=== PATIENT | male | born 1980 | race Caucasian/White ===

== ENCOUNTER 2019-12-28 06:01 | Day surgery (SDC) | payer MEDICAID, OTHER ==
[~2019-12-28 06:01] MED LIST: Dextrose 5%-0.45% NaCl 1,000 ML IV SCH; Sodium Chloride 0.9% 10 ML Syringe FLUSH PRN
[2019-12-28] MEDS ORDERED: Midazolam 1 MG/ML 2 ML SDV IV ONE ×3 (06:02→06:58)
[2019-12-28] MEDS ORDERED: fentaNYL 100 MCG/2 ML SDV IV ONE ×3 (06:02→06:57)
[2019-12-28] MEDS ORDERED: Midazolam 1 MG/ML 2 ML SDV ONE (06:15)
[2019-12-28] MEDS ORDERED: fentaNYL 100 MCG/2 ML SDV ONE (06:15)
--- NOTE | 2019-12-28 13:29 | OR ---
DATE: 12/28/2019 PROCEDURE PERFORMED: Esophagogastroduodenoscopy and multiple pinch biopsies. INSTRUMENT USED: [id number] Olympus video panendoscope. PREMEDICATIONS: No oral or topical anesthesia used. Fentanyl 100 mcg intravenous, Versed 2 mg intravenous. The procedure was done under pulse oximetry, BP recording, and electronic device monitor. INDICATION: The patient with persistent longstanding heartburn and dyspepsia, unexplained and not responsive to medical measures, on PPI. Esophagogastroduodenoscopy is performed for detection of any active erosive lesions, Snyder esophagus and/or malignancy also under consideration, H. pylori status to be determined, endoscopic hemostasis therapy if needed. The scope was passed with ease. Adequate visualization of the esophagus was made from proximal to distal areas. No upper esophageal lesions identified. No distal esophageal stricture. No uphill or downhill esophageal varices. No Corina- Martinez tear. No evidence of erosive esophagitis by [place] criteria. No esophageal polyp or tumor mass identified. Z-line was seen at around 40 cm distal to the oral verge, configuration consistent with grade 1 by ZAP classification. No proximal gastric varices noted. Gastric fundus examination by retroflexion showed no polypoid lesions. No gastric ulcer, malignant mass, or vascular ectasia identified. Duodenal bulb showed no ulcer. Visualized second part of the duodenum was remarkable. Multiple pinch biopsies were taken from the gastric antrum and proximal body and sent for PyloriTek test for H. pylori, and if negative in an hour, the tissue will be sent for histopathology. No bleeding was noted from any of the visualized areas at the completion of examination. Photographs were taken of the duodenal bulb, gastric antrum, fundus, and distal esophagus. IMPRESSION: Normal study. The patient tolerated the procedure well. [facility] /[id number]
== END 2019-12-28 09:15 | disposition home or self-care (01) ==
LOC: DL.ENDO 06:01
PROVIDERS: ATTEND Internal Medicine Gastroenterology
DX: R10.13 Epigastric pain (principal); K31.89 Other diseases of stomach and duodenum; K21.9 Gastro-esophageal reflux disease without esophagitis; Z88.1 Allergy status to other antibiotic agents; Z79.899 Other long term (current) drug therapy
CPT/HCPCS: 43239; 87077; J2250; J3010; J7042

== ENCOUNTER 2020-05-04 01:48 | Emergency (ER) | payer MEDICAID ==
[2020-05-04] MEDS ORDERED: Sodium Chloride 0.9% 1,000 ML IV ONE (03:04)
[2020-05-04 03:05] LABS: ANION GAP 10.7 mEq/L (7-13); CHLORIDE,CL 104 mmol/L (98-107); SODIUM,NA 143 mmol/L (136-145)
--- NOTE | 2020-05-04 03:47 | CT ---
PROCEDURE INFORMATION: Exam: CT Abdomen And Pelvis Without Contrast Exam date and time: 05/04/2020 3:28 AM Age: 39 years old Clinical indication: Other: Right flank lower abdominal pain, HX renal stones TECHNIQUE: Imaging protocol: Computed tomography of the abdomen and pelvis without contrast. Radiation optimization: All CT scans at this facility use at least one of these dose optimization techniques: automated exposure control; mA and/or kV adjustment per patient size (includes targeted exams where dose is matched to clinical indication); or iterative reconstruction. COMPARISON: No relevant prior studies available. FINDINGS: Liver: Normal. No mass. Gallbladder and bile ducts: Normal. No calcified stones. No ductal dilation. Pancreas: Normal. No ductal dilation. Spleen: Normal. No splenomegaly. Adrenals: Normal. No mass. Kidneys and ureters: Non-obstructing 2-3 mm nephrolithiasis bilaterally. Mild distention of the right ureter without obstructing ureteral calculus. Stomach and bowel: There appears to be circumferential wall thickening and mucosal curvilinear lucency involving the splenic flexure and proximal descending colon. This may be related to incomplete luminal distention versus colitis, more likely chronic. Appendix: No evidence of appendicitis. Intraperitoneal space: Unremarkable. No free air. No significant fluid collection. Vasculature: Unremarkable. No abdominal aortic aneurysm. Lymph nodes: Unremarkable. No enlarged lymph nodes. Bladder: Bladder is partially distended without calculus. Reproductive: Prostatic calcifications. Surgical sutures in the right scrotal sac, partially included on the study. Asymmetry of the seminal vesicles right greater than left. Bones/joints: Vacuum disc at the lumbosacral junction. No compression deformity. Soft tissues: Abdominal wall soft tissues are unremarkable. IMPRESSION: 1. Bilateral 2-3 mm nonobstructing nephrolithiasis. 2. Mild prominence of the right ureter possibly due to transiently obstructing calculus or recently passed calculus. No bladder calculus identified.
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
== END 2020-05-04 04:05 | disposition home or self-care (01) ==
LOC: DL.ED 01:48
DX: N20.0 Calculus of kidney (principal); K21.9 Gastro-esophageal reflux disease without esophagitis; Z88.1 Allergy status to other antibiotic agents; Z79.899 Other long term (current) drug therapy
CPT/HCPCS: 36415; 74176; 80053; 81001; 85025; 99284; J7030

== ENCOUNTER 2020-07-21 21:06 | Emergency (ER) | payer MEDICAID ==
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
== END 2020-07-21 23:22 ==
LOC: DL.ED 21:06
DX: S82.832A Other fracture of upper and lower end of left fibula, initial encounter for closed fracture (principal); S82.302A Unspecified fracture of lower end of left tibia, initial encounter for closed fracture; K21.9 Gastro-esophageal reflux disease without esophagitis; Z88.1 Allergy status to other antibiotic agents; Z79.899 Other long term (current) drug therapy; W23.0XXA Caught, crushed, jammed, or pinched between moving objects, initial encounter
CPT/HCPCS: 29505; 29515; 73590-LT; 99283; 99285-25

== ENCOUNTER 2022-08-02 09:19 | Emergency (ER) | payer MEDICAID ==
[2022-08-02] MEDS ORDERED: Sodium Chloride 0.9% 1,000 ML IV ONE (09:39)
[2022-08-02] MEDS ORDERED: Sodium Chloride 0.9% 10 ML Syringe FLUSH PRN (09:39)
[2022-08-02] MEDS ORDERED: Ketorolac 30 MG/ML SDV IVPUSH ONE (09:39)
[2022-08-02 10:26] LABS: ANION GAP 14.9 mEq/L (7-13); CHLORIDE,CL 101 mmol/L (98-107); ESTIMATED GFR 70 mL/min (>=60); SODIUM,NA 138 mmol/L (136-145)
== END 2022-08-02 10:53 | disposition home or self-care (01) ==
LOC: DL.ED 09:19
DX: N23 Unspecified renal colic (principal); K21.9 Gastro-esophageal reflux disease without esophagitis; Z88.1 Allergy status to other antibiotic agents; Z79.899 Other long term (current) drug therapy
CPT/HCPCS: 36415; 80053; 81001; 83605; 84145; 85025; 87040; 96374; 99284-25; J1885; J3490; J7030

== ENCOUNTER 2023-02-15 18:26 | Emergency (ER) | payer OTHER, MEDICAID ==
[2023-02-15] MEDS ORDERED: HYDROmorphone 1 MG/ML Syringe IVPUSH ONE ×2 (19:32→22:18)
[2023-02-15] MEDS ORDERED: Iopamidol 612 MG/ML 100 ML Bottle IVPUSH ONE (19:32)
[2023-02-15] MEDS ORDERED: Sodium Chloride 0.9% 1,000 ML IV SCH (19:45)
[2023-02-15] MEDS ORDERED: Ondansetron 4 MG/2 ML SDV IVPUSH ONE (19:56)
[2023-02-15 22:10] LABS: CHLORIDE,CL 102 mmol/L (98-107); SODIUM,NA 139 mmol/L (136-145)
[2023-02-15 22:37] LABS: ESTIMATED GFR 63 mL/min (>=60)
== END 2023-02-15 22:38 ==
LOC: DL.ED 18:26
DX: S22.42XA Multiple fractures of ribs, left side, initial encounter for closed fracture (principal); S42.022A Displaced fracture of shaft of left clavicle, initial encounter for closed fracture; S27.1XXA Traumatic hemothorax, initial encounter; I31.39 Other pericardial effusion (noninflammatory); Z88.1 Allergy status to other antibiotic agents; V89.2XXA Person injured in unspecified motor-vehicle accident, traffic, initial encounter
CPT/HCPCS: 36415; 71045; 71100; 71270; 73000; 74178; 80053; 80307; 84484; 85025; 96361; 96374; 96375; 96376; 99284; 99285; J1170; J2405; J3360; J7030; Q9967

== ENCOUNTER 2023-04-07 21:32 | Emergency (ER) | payer MEDICAID ==
[2023-04-07] MEDS ORDERED: Iopamidol 612 MG/ML 100 ML Bottle IVPUSH ONE (23:39)
[2023-04-07 23:53] LABS: BASOPHILS PERCENT AUTO 0.3 % (0.0-1.0); EOSINOPHILS PERCENT AUTO 0.7 % (1.0-3.0); HEMATOCRIT 44.7 % (40.0-54.0); HEMOGLOBIN 15.4 g/dL (14.0-18.0); LYMPHOCYTES PERCENT AUTO 19.4 % (20.5-50.1); MEAN CORPUSCULAR HEMOGLOBIN 29.7 pg (27.0-34.0); MEAN CORPUSCULAR HGB CONC 34.5 g/dL (33.0-35.0); MEAN CORPUSCULAR VOLUME 86.3 fL (80-100); MONOCYTES PERCENT AUTO 9.7 % (2-8); NEUTROPHILS PERCENT AUTO 69.9 % (42.2-75.2); PLATELET COUNT,PLT 249 10^3/uL (150-450); RED BLOOD CELL COUNT 5.18 10^6/uL (4.6-6.2); WHITE BLOOD CELL COUNT,WBC 10.7 10^3/uL (5.0-10.0)
[2023-04-08 00:12] LABS: A/G RATIO 1.4; ALANINE AMINOTRANSFERASE,ALT 33 U/L (16-63); ALBUMIN 4.1 g/dL (3.4-5.0); ALKALINE PHOSPHATASE 122 U/L (46-116); ANION GAP 10.9 mEq/L (7-13); ASPARTATE AMNIOTRANSFERASE,AST 21 U/L (15-37); BILIRUBIN TOTAL 0.5 mg/dL (0.2-1.0); BLOOD UREA NITROGEN,BUN 16 mg/dL (7-18); BUN/CREATININE RATIO 14.4 (No establ ref range); CALCIUM 9.1 mg/dL (8.5-10.1); CARBON DIOXIDE,CO2 31 mmol/L (21-32); CHLORIDE,CL 106 mmol/L (98-107); CREATININE 1.11 mg/dL (0.70-1.30); EST CRCL DRUG DOSING (CG) 87.58 mL/min; GLUCOSE RANDOM 113 mg/dL (70-99); POTASSIUM,K 3.9 mmol/L (3.5-5.1); PROTEIN TOTAL,TP 7.1 g/dL (6.4-8.2); SODIUM,NA 144 mmol/L (136-145)
[2023-04-08 00:16] LABS: LACTIC ACID 0.6 mmol/L (0.4-2.0)
[2023-04-08 00:20] LABS: ESTIMATED GFR 86 mL/min (>=60)
[2023-04-08 00:21] LABS: C-REACTIVE PROTEIN < 0.2 mg/dL (0.0-0.9)
[2023-04-08] MEDS ORDERED: fentaNYL 100 MCG/2 ML SDV IVPUSH ONE (01:48)
[2023-04-08] MEDS ORDERED: Take Home: Amoxicillin/Clavulanate K 875-125 MG Tab, 6 Tab Pack PO ONE (02:55)
== END 2023-04-08 03:13 | disposition home or self-care (01) ==
LOC: DL.ED 21:32
DX: K61.0 Anal abscess (principal); K21.9 Gastro-esophageal reflux disease without esophagitis; Z88.1 Allergy status to other antibiotic agents; Z79.899 Other long term (current) drug therapy
CPT/HCPCS: 36415; 72193; 80053; 83605; 85025; 86140; 87070; 87077; 87186; 96374; 99283; 99284; A9270; J3010

== ENCOUNTER 2023-05-26 22:50 | Emergency (ER) | payer MEDICAID ==
[2023-05-26] MEDS ORDERED: Balanced Salt Solution Ophth Irrig 30 ML Bottle EYERT ONE (23:48)
[2023-05-26] MEDS ORDERED: Erythromycin Base 0.5% Ophth Oint 3.5 GM Tube EYERT ONE (23:51)
== END 2023-05-27 00:32 | disposition home or self-care (01) ==
LOC: DL.ED 22:50
DX: S05.01XA Injury of conjunctiva and corneal abrasion without foreign body, right eye, initial encounter (principal); H11.31 Conjunctival hemorrhage, right eye; K21.9 Gastro-esophageal reflux disease without esophagitis; Z79.899 Other long term (current) drug therapy; Z88.1 Allergy status to other antibiotic agents; W22.8XXA Striking against or struck by other objects, initial encounter
CPT/HCPCS: 99282; A9270-GY

== ENCOUNTER 2023-07-06 12:43 | Emergency (ER) | payer MEDICAID ==
[2023-07-06] MEDS: Lidocaine 1% 5 ML VIAL INJECT ONE (13:20)
== END 2023-07-06 13:27 | disposition home or self-care (01) ==
LOC: DL.ED 12:43
DX: K21.9 Gastro-esophageal reflux disease without esophagitis (principal); Z79.899 Other long term (current) drug therapy; Z88.1 Allergy status to other antibiotic agents; W22.8XXA Striking against or struck by other objects, initial encounter
CPT/HCPCS: 12001; 99282; J3490